=== PATIENT | female | born 1990 | race Caucasian/White ===

== ENCOUNTER 2017-03-18 14:46 | Outpatient (CLI) | payer OTHER ==
[~2017-03-18] VITALS: Ht 170.2 cm; Wt 100.0 kg
[~2017-03-18 14:46] MED LIST: IBUP800T PO; OXYC-302 PO; SENN1TAB5 PO
[2017-03-18 14:56] VITALS: BP 145/75
[2017-03-18 15:28] LABS: HEMATOCRIT 39.6 % (34.6-47.8); HEMOGLOBIN 13.1 g/dL (11.7-16.4); WHITE BLOOD COUNT 9.4 x10^3/uL (3.4-10)
[2017-03-18 15:37] LABS: BLOOD UREA NITROGEN 9 mg/dL (7-18)
[2017-03-18 15:41] LABS: ASPARTATE AMINO TRANSFERASE 11 U/L (15-37)
[2017-03-18] MEDS ORDERED: PREN-3 PO (16:14)
== END 2017-03-18 16:43 | disposition home or self-care (01) ==
LOC: LDOP 14:46
PROVIDERS: ATTEND Obstetrics & Gynecology
DX: O13.3 Gestational [pregnancy-induced] hypertension without significant proteinuria, third trimester (principal); Z3A.38 38 weeks gestation of pregnancy
CPT/HCPCS: 36415; 59025; 80053; 81001; 82570; 84156; 84550; 85025; 87086; 99211; G0463